=== PATIENT | male | born 1940 | race Caucasian/White ===

== ENCOUNTER 2017-01-06 05:30 | Emergency (ER) | payer MEDICARE, OTHER ==
[2017-01-06 05:22] LABS: BASOPHILS ABSOLUTE 0.08 10/3/uL (0.0-0.16); EOSINOPHILS 11.5 %; EOSINOPHILS ABSOLUTE 0.89 10/3/uL (0.0-0.53); ER CBC TAT 0 Hrs 05 Mins; HEMATOCRIT 31.6 % (40.0-51.0); HEMOGLOBIN 10.2 g/dL (13.6-17.8); IMMATURE GRANULOCYTES 0.1 %; IMMATURE GRANULOCYTES ABSOLUTE 0.01 10/3/uL (0.0-0.11); LYMPHOCYTES 30.6 %; LYMPHOCYTES ABSOLUTE 2.37 10/3/uL (0.67-4.30); MEAN CORPUS HGB CONC 32.3 g/dL (32.0-36.0); MEAN CORPUSCULAR HEMOGLOB 26.9 pg (26.0-34.0); MEAN CORPUSCULAR VOLUME 83.4 fL (80-100); MEAN PLATELET VOLUME 10.5 fL (9.2-13.0); MONOCYTES 13.4 %; MONOCYTES ABSOLUTE 1.04 10/3/uL (0.21-1.20); NEUTROPHILS 43.4 %; NEUTROPHILS ABSOLUTE 3.35 10/3/uL (2.02-8.40); PLATELET COUNT 299 10/3/uL (150-400); RED CELL COUNT 3.79 10/6/uL (4.7-6.1); WHITE BLOOD CELLS 7.7 10/3/uL (4.5-10.5)
[2017-01-06 05:28] LABS: MANUAL DIFF NO %
[2017-01-06 05:29] LABS: INTERNATIONAL NORMAL RATI 1.1 UNITS (-); PARTIAL THROMBO TIME 29.5 SEC (22.5-37.2); PROTIME (NOT ORD) 13.6 SEC (12.0-14.5)
[~2017-01-06 05:30] MED LIST: ALLEGRA PO; AMB5 PO; ASA5GR PO; ASAB PO; B1100 PO; B12250T PO; BUM1 PO; CARDCD240 PO; CARTIA XT240 MG/24 PO; CAT2 PO; CLONIDINE PO; COUMADIN PO; COZ50 PO; COZAAR100 MG PO; DIABETA5 PO; DILACOR X2 PO; DILT-XR240 MG PO; DRAMAMINE25 MG PO; ENULOSE PO; FINASTERIDE PO; FISH-EPA1000 MG PO; FLOMAX4 PO; GLUCOPHAGE1000 MG PO; GLUCPH PO; GLYBURIDE PO; HALF81 PO; HUMULIN; HUMULIN SC; INSNOVN SC; INSNOVR; INSNOVR SC; IRON PO; JANUVIA100 MG PO; K-TABS10 MEQ PO; KLOR-CON 1010 MEQ PO; L20 PO; L40 PO; L80 PO; LACT30UDL PO; LANTUS SC; LEVAQUIN750 MG PO; LEVEMFLXPN SC; LEVEMIR SC; LEVOTHROID25 MCG PO; LEVOTHYROXIN25 MCG PO; LIPITOR40 PO; MAGOX4 PO; MAX25 PO; MAXIDE PO; MCZ25 PO; METFORMIN PO; MICRONASE5 MG PO; MIRALAXPKT PO; MULTIPLE VIT PO; Metformin PO; NITROSTAT0.4 MG SL; NOVOLOG SC; NOVOPEN SC; OTC ALLERGY MED PO; PCET PO; PLAVIX PO; PLEND5 PO; PR25 PO; PRILO PO; PRIN2.5 PO; PRIN5 PO; PROSCAR5 PO; REG5 PO; REST15 PO; SPIRO50 PO; SYN.025B PO; SYNTHROID200 MCG PO; TESSALON200 MG PO; VITAMIN D31000 UNIT PO; XIFAXAN550 MG PO; ZESTORETIC1 TAB PO; ZOCOR40 PO; ZYRTEC ALLGY10 MG PO; [UNRECOGNIZED DRUG - REMARK] TOP
[2017-01-06 05:38] LABS: ALBUMIN 3.5 G/DL (3.5-5.0); ALKALINE PHOSPHATASE 86 U/L (45-117); BUN (BLOOD UREA NITROGEN) 33 MG/DL (6-23); CALCIUM, SERUM 10.2 MG/DL (8.5-10.4); CHEST PAIN PROFILE TAT 0 Hrs 21 Mins; CHLORIDE, SERUM 110 MMOL/L (96-112); CREATININE 1.56 MG/DL (0.70-1.30); DIRECT BILIRUBIN 0.1 MG/DL (0.0-0.4); GFR AFRICAN AMERICAN 49 ML/MIN (>=60); GFR NON AFRICAN AMERICAN 42 ML/MIN (>=60); INDIRECT BILIRUBIN(NOT ORDER) 0.3 MG/DL (0.1-0.9); POTASSIUM, SERUM 4.2 MMOL/L (3.5-5.3); SGOT(AST) 44 U/L (5-40); SGPT(ALT) 54 U/L (5-65); SODIUM, SERUM 139 MMOL/L (135-148); TOTAL BILIRUBIN 0.4 MG/DL (0-1.2); TOTAL PROTEIN 6.2 G/DL (6.0-8.5); TROPONIN I <0.02 NG/ML (<0.05)
[2017-01-06 05:39] LABS: CO2 (CARBON DIOXIDE) 21 MMOL/L (24-34); GLUCOSE, SERUM 245 MG/DL (60-99)
== END 2017-01-06 08:45 | disposition home or self-care (01) ==
LOC: ER 05:30
PROVIDERS: Specialist
DX: R07.89 Other chest pain (principal); I12.9 Hypertensive chronic kidney disease with stage 1 through stage 4 chronic kidney disease, or unspecified chronic kidney disease; N18.9 Chronic kidney disease, unspecified; D64.9 Anemia, unspecified; I25.2 Old myocardial infarction; E11.9 Type 2 diabetes mellitus without complications; Z87.891 Personal history of nicotine dependence; Z86.73 Personal history of transient ischemic attack (TIA), and cerebral infarction without residual deficits; Z85.828 Personal history of other malignant neoplasm of skin; Z95.1 Presence of aortocoronary bypass graft; Z90.49 Acquired absence of other specified parts of digestive tract; Z88.5 Allergy status to narcotic agent; Z88.8 Allergy status to other drugs, medicaments and biological substances; Z79.4 Long term (current) use of insulin; Z79.899 Other long term (current) drug therapy
CPT/HCPCS: 71010; 80048; 80076; 83735; 84484; 85025; 85610; 85730; 93005; 99285; A9270-GY